=== PATIENT | female | born 1990 | race American Indian/Alaskan Native ===

== ENCOUNTER 2017-08-07 22:13 | Emergency (ER) | payer SELFPAY ==
[2017-08-07 22:25] VITALS: BP 130/89
[2017-08-07] MEDS ORDERED: ASPIRIN PO ONE (22:25)
== END 2017-08-07 22:20 | disposition left against medical advice (07) ==
LOC: ED 22:13
DX: R07.9 Chest pain, unspecified (principal); Z53.21 Procedure and treatment not carried out due to patient leaving prior to being seen by health care provider
CPT/HCPCS: 93005; 93010